=== PATIENT | female | born 1975 ===

== ENCOUNTER 2020-08-22 08:26 | Outpatient (CLI) | payer OTHER | END 2020-08-22 08:39 | disposition home or self-care (01) | LOC: SONOGRAMA 08:26 → MAMO-SONO 08:26 → SONOGRAMA 08:39 | PROVIDERS: ATTEND General Practice | DX: M76.892 Other specified enthesopathies of left lower limb, excluding foot (principal); S80.912A Unspecified superficial injury of left knee, initial encounter ==